=== PATIENT | female | born 1995 | race Asian ===

== ENCOUNTER → 2018-07-22 16:00 | Outpatient (CLI) | payer OTHER, MEDICAID, SELFPAY ==
--- NOTE | 2018-07-22 | DI.US.S_ITS ---
PROCEDURE: US OB <= 14 WEEKS FETUS INDICATIONS: SIZE AND DATES OUTSIDE/PRIOR DATING DATA: Last menstrual period (LMP): 05/01/18. LMP-based estimated date of delivery (MIKE): 02/05/19. First dating scan (date and location): 07/22/18. Estimated date of delivery (MIKE) from first dating scan: 02/19/19. TECHNIQUE: Real-time scanning was performed of the fetus and maternal pelvic organs, with image documentation. Endovaginal scanning was also performed to better visualize the fetus and maternal ovaries. COMPARISON: None. FINDINGS: Embryo: [place]-rump length measures 2.8 cm corresponding to 9 weeks 5 days. Embryonic heart rate measures 165 beats per minute. Measurement variability in dating: +/- 4 weeks by LMP, +/- 7 days by mean sac diameter (use before 6 weeks gestation if crown-rump length not able to be measured), +/- 5 days by crown-rump length (up to 8 weeks 6 days gestation), +/- 7 days by crown-rump length (up to 13 weeks 6 days gestation). Maternal organs: Ovaries within normal limits. Limited images through the kidneys demonstrate no hydronephrosis. IMPRESSION: 9 week 5 day single living IUP. Dictated by: Jack Collins RRA Interpreted: Rani Hurtado MD on 07/22/2018 at 17:18 Approved by: Rani Hurtado MD, PhD on 07/22/2018 at 18:11
== END ==
PROVIDERS: Visit Provider Family Medicine
DX: Z36.89 Encounter for other specified antenatal screening (principal); Z3A.09 9 weeks gestation of pregnancy
CPT/HCPCS: 76801

== ENCOUNTER → 2018-10-01 15:05 | Outpatient (CLI) | payer OTHER, MEDICAID, SELFPAY ==
--- NOTE | 2018-10-01 | DI.US.S_ITS ---
PROCEDURE: US OB >= 14 WEEKS FETUS INDICATIONS: ANATOMY OUTSIDE/PRIOR DATING DATA: Last menstrual period (LMP): 05/01/18. LMP-based estimated date of delivery (MIKE): 02/05/19. First dating scan (date and location): 07/22/18. Estimated date of delivery (MIKE) from first dating scan: 02/19/19. TECHNIQUE: Real-time scanning was performed of the fetus, with image documentation and biometric measurements. Endovaginal scanning: No COMPARISON: [facility], OB <= 14 WEEKS FETUS, 07/22/2018, 16:37. FINDINGS: General: A single living intrauterine gestation is present. Presentation: Breech. Placenta: Placental position is posterior, without previa. Amniotic fluid index: 16.1 cm, normal range is 5-24 cm. heart rate: 128 beats per minute. Maternal cervical canal: 5.7 cm long. Normal lower limit is 2.5 cm. biometrics: Biparietal diameter: 20 weeks Head circumference: 19 weeks 5 days Abdominal circumference: 20 weeks Femur length: 20 weeks 1 day Estimated gestational age from initial scan: 19 weeks 6 days Composite gestational age from present scan: 20 weeks Estimated weight and percentile: 327 g; 55th percentile Measurement variability for biometric dating: +/- 7 days from 14 weeks to 15 weeks 6 days gestation, +/- 10 days from 16 weeks to 21 weeks 6 days gestation, +/- 2 weeks from 22 weeks to 27 weeks 6 days gestation, +/- 3 weeks for 28 weeks gestation or later. weight reference: 4500 g or EFW >90/95% is considered macrosomia or large for gestational age. EFW <10% is small for gestational age. EFW 5% or less is considered intra-uterine growth restriction. Anatomic survey: Neuro: Ventricles are non-dilated at less than 10 mm. Cisterna magna is normal at 3-11 mm. Cerebellum is normal in size and morphology. Nuchal skin fold: Normal at less than 6 mm between 14-21 weeks gestational age. Face: Nose and lips, facial profile are normal. Spine: No evidence for spina bifida. Heart: 4-chambered heart is present, with normal ventricular outflow tracts. Diaphragm: Diaphragm is intact. Stomach: Left-sided stomach is present. Kidneys: No hydronephrosis. Normal is less than 5 mm in 2nd trimester, less than 7 mm in 3rd trimester. Cord: 3-vessel cord has orthotopic insertion. Bladder: Normal in size. Extremities: All 4 extremities identified. IMPRESSION: Single living IUP redemonstrated and interval growth is normal. Normal anatomic survey. Dictated by: Jack Collins [facility] Interpreted: Vaibhav Caballero MD on 10/01/2018 at 16:31 Approved by: Vaibhav Caballero M.D. on 10/01/2018 at 17:20
== END ==
PROVIDERS: Visit Provider Family Medicine
DX: Z36.89 Encounter for other specified antenatal screening (principal); Z3A.20 20 weeks gestation of pregnancy
CPT/HCPCS: 76811

== ENCOUNTER → 2019-01-26 13:27 | Outpatient (ROUT) | payer OTHER, MEDICAID, SELFPAY | PROVIDERS: Visit Provider Family Medicine | DX: Z34.90 Encounter for supervision of normal pregnancy, unspecified, unspecified trimester (principal) | CPT/HCPCS: 87081 ==

== ENCOUNTER 2019-02-17 21:22 | Observation (INO) | payer OTHER, MEDICAID, SELFPAY | END 2019-02-17 22:25 | disposition home or self-care (01) | LOC: LABOR 21:24 | PROVIDERS: Admitting Provider Family Medicine; Visit Provider Family Medicine | CPT/HCPCS: 59025; 84112; G0378; G0379 ==

== ENCOUNTER 2019-02-18 01:39 | Inpatient (IN) | payer OTHER, MEDICAID, SELFPAY ==
[2019-02-18 03:31] VITALS: BP 130/69
[2019-02-18] MEDS: LACTATED RINGERS 1,000 ML 100 ML IV ×2 (03:33→04:59)
[2019-02-18 03:49] LABS: Add Manual Diff / Slide Review NO; Basophils Absolute Auto 100 /uL (0-100); Basophils Percent Auto 0.5 % (0-2); Eosinophils Absolute Auto 100 /uL (0-450); Eosinophils Percent Auto 0.8 % (2-4); Hematocrit 35.1 % (36-46); Hemoglobin 11.5 g/dL (12.0-16.0); Lymphocytes Absolute Auto 1900 /uL (1100-4500); Lymphocytes Percent Auto 16.5 % (25-40); Mean Corpuscular HGB Conc 32.8 % (30-36); Mean Corpuscular Hemoglobin 28.8 PG (26-34); Mean Corpuscular Volume 87.6 fL (80-100); Monocytes Absolute Auto 900 /uL (0-900); Monocytes Percent Auto 7.8 % (3-14); Neutrophils Absolute Auto 8300 /uL (1500-7000); Neutrophils Percent Auto 74.4 % (50-75); Platelet Count 219 X10^3/uL (150-400); Red Cell Distribution Width 13.6 % (11.6-14.8); White Blood Cell Count 11.2 X10^3/uL (4.5-11.0)
[2019-02-18 05:04] LABS: Strep Grp B PCR NEG for Grp B Strep
--- NOTE | 2019-02-18 07:10 | P.HPOB_ITS ---
OB HPI Date/Time Date of admission: 02/18/19 Date Patient Seen: 02/18/19 Time Patient Seen: 07:08 History of Present Condition Chief complaint: EVALUATION OF LABOR : 1 Para: 0 Estimated Date of Delivery: 02/19/19 Estimated Gestational Age (weeks): 40 Narrative: Jennifer De La Fuente is a 23 year old female one para [address] Naik and Dr. Nugent at [facility]. Patient was seen initially at 11 weeks of . By last menstrual period dating ultrasound her due date is February 19, 2019. Patient presents in active labor with regular contractions an approximately 5 cm dilated. Indications Other reason(s) for admission: Active labor History of Present care: good care, initiated at week # (11), number of visits (12) and pounds weight gain (26) Dating criteria: LMP confirmed by 1st trimester US Ultrasounds: normal 1st trimester US and normal mid trimester US Abnormal ultrasound findings: None Obstetrical complications: none Medical complications: none Narrative: Patient had uneventful antepartum course. There is indication this patient had glucose in her urine and her blood sugars were followed for one week and were normal. Preadmission Labs Blood type: O (+) positive -: Antibody screen: negative, Cystic fibrosis screen: unknown, GBS status: negative, HBsAG: negative, HIV: negative, HSV 1: negative, HSV 2: negative and RPR/VDLR: negative -: Chlamydia screen: detected (Negative) and Gonorrhea screen: detected (Negative) -: Rubella: immune and Varicella: immune HCT: 35.1 HCAB: negative Integrated screen: Unknown Sequential screen: Unknown Cell-free DNA: Unknown Narrative: Patient evidently had a positive urine glucose and was followed for one week with fingerstick blood sugars. The sugars were normal. On questioning the patient never had a 1 hour or 3 hour glucose tolerance test Prior (ies) History: [place] Evaluation Evaluation Laboratory results: Laboratory Tests 02/18/19 02/18/19 02/18/19 02:30 02:30 04:00 WBC 11.2 H RBC 4.00 Hgb 11.5 L Hct 35.1 L MCV 87.6 MCH 28.8 MCHC 32.8 RDW 13.6 Plt Count 219 Neut % (Auto) 74.4 Lymph % (Auto) 16.5 L [place] % (Auto) 7.8 Eos % (Auto) 0.8 L Baso % (Auto) 0.5 Neut # (Auto) 8300 H Lymph # (Auto) 1900 [place] # (Auto) 900 Eos # (Auto) 100 Baso # (Auto) 100 Group B Strep (PCR) Neg for grp b strep Blood Type O Positive Antibody Screen Negative PFSH Family History (Updated 12/28/16 @ 00:00 by Conversion Provider) Grandfather Age: 67 Lung cancer Liver cancer Parkinson's disease Social History Smoking Status: Never smoker Family History Grandfather Age: 67 Lung cancer Liver cancer Parkinson's disease Social History Smoking Status: Never smoker Meds Home Medications Medication Instructions Recorded Confirmed Type No Known Home Medications 02/18/19 02/18/19 History Allergies Allergy/AdvReac Type Severity Reaction Status Date / Time No Known Drug Allergies Allergy Verified 01/11/18 16:33 Review of Systems Review of Systems All systems reviewed & are unremarkable except as noted in HPI and below Exam Vital Signs (past 8 hours): - 02/18/19 03:31 Blood Pressure 130/69 Const General: cooperative and healthy appearing [facility] Head: normal to inspection Ears: hearing grossly normal bilaterally Nose: external nose normal Face and sinus: normal facial exam Mouth: oral mucosae normal, lip normal, tongue normal and moist mucous membranes Teeth and gingiva: dentition normal Throat: posterior oropharynx normal Eyes General: appearance normal, both eyes and all related structures Neck Neck: normal visual inspection and full ROM Chest Chest: normal inspection of the chest and normal palpation of entire chest wall Breast inspection: normal inspection of the breasts and normal inspection of the axillae Breast Palpation: normal palpation of the breasts and normal palpation of the axillae Resp Effort & Inspection: normal respiratory effort Auscultation: clear to auscultation bilaterally Cardio Palpation: normal PMI Rate: regular rate Rhythm: regular rhythm Heart Sounds: S1 normal and S2 normal GI Inspection: normal to inspection Palpation: soft and no hepatosplenomegaly Percussion: normal to percussion Auscultation: normal bowel sounds External Female Exam: external appearance normal and normal appearance of the urethra Speculum Exam - Vagina: normal appearance of the vagina and normal vaginal discharge OB/External & Speculum: external exam normal Manual OB Exam: dilated 5, effaced fully and station 0 Uterus Location (Fundal Height): 39 Presentation: vertex Back/Spine/Pelvis Thoracic/Lumbar Spine: thoracic and lumbar spine normal to inspection Skin General: no rashes or lesions noted Neuro General: alert, oriented x3, tone normal and moves all extremities Cognition: normal cognition Speech: speech normal Gait: normal gait Motor: muscle tone normal throughout Sensory Exam: no sensory deficits noted Extrem General: normal to inspection and normal exam except as noted Psych Appearance: grossly normal and well kempt Mental Status: mental status grossly normal Speech and Movement: speech and movement normal Objective Labs Result Diagrams: 02/18/19 02:30 Labs: Laboratory Results - last 24 hr 02/18/19 02/18/19 02/18/19 02:30 02:30 04:00 WBC 11.2 H RBC 4.00 Hgb 11.5 L Hct 35.1 L MCV 87.6 MCH 28.8 MCHC 32.8 RDW 13.6 Plt Count 219 Neut % (Auto) 74.4 Lymph % (Auto) 16.5 L [place] % (Auto) 7.8 Eos % (Auto) 0.8 L Baso % (Auto) 0.5 Neut # (Auto) 8300 H Lymph # (Auto) 1900 [place] # (Auto) 900 Eos # (Auto) 100 Baso # (Auto) 100 Group B Strep (PCR) Neg for grp b strep Blood Type O Positive Antibody Screen Negative Assessment and Plan Assessment and Plan Assessment and Plan narrative: Term intrauterine Active labor Plan is for epidural Plan is for rupture membranes Time Spent with Patient Total time spent with greater than 50% in coordination of care (as documented) at patient's floor/unit and/or counseling patient:: 15-24 minutes
--- NOTE | 2019-02-18 07:36 | PM.OBPNLAB ---
Date/Time Date Patient Seen: 02/18/19 Pain Control Pain control: tolerating well and epidural Pelvic Exam Dilation (cm): 7 Effacement (%): 100 station: 0 Amniotic membrane status: Ruptured Contractions Contractions on admission: irregular Contraction pattern: Irregular Contraction intensity: Moderate Status status: Category l Monitor Accelerations: Present Monitor Decelerations: Absent Monitor Variability: Moderate Assessment and Plan Assessment: active labor Plan: begin patient augmentation
[2019-02-18] MEDS: OXYTOCIN PREMIX 30 UNIT/500 ML PLAST..BAG IV (09:01)
--- NOTE | 2019-02-18 11:38 | PM.OBPRVD ---
Delivery date: 02/18/19 Intrapartal events: None Cervical ripening method: none Delivery augmentation: rupture of membranes and pitocin Delivery monitor: external FHT and external uterine Route of delivery: L&D Laceration Description: Perineal - 1st Degree Delivery repair: chromic Estimated blood loss (mL): 300 Anesthesia type: Epidural Complications: None none Narrative: Patient is a 23-year-old one para 0 who presented in active labor. Patient received epidural. Date good progress to complete. She had a desultory labor after the epidural and needed a small amount of Pitocin. The patient pushed and delivered spontaneously a live born male with scores of nine at one minute nine at 5 minutes. There is a small 1st degree perineal tear requiring one stitch. There are no cervical vaginal lacerations. This placenta delivered spontaneously. The cord had three vessels. The estimated blood loss was 300 cc. Plan for aftercare: Routine aftercare
[2019-02-18] MEDS: LANOLIN OINT 7 GM 1 APPLIC TOP (16:28)
[2019-02-18] MEDS: KETOROLAC 30 MG/ML VIAL IV (16:29)
[2019-02-18] MEDS: DERMOPLAST SPRAY 20% 60 ML 1 SPRAY TOP (16:29)
[2019-02-18] MEDS: MEASLES,MUMPS,RUBELLA VACC/PF 0.5 ML VIAL SUBCUT (21:54)
[2019-02-18] MEDS: IBUPROFEN 600 MG TABLET PO (22:29)
[2019-02-19] MEDS: IBUPROFEN 600 MG TABLET PO ×2 (04:27→10:13)
[2019-02-19] MEDS: FERROUS GLUCONATE 324 MG TABLET PO (10:12)
[2019-02-19] MEDS: PRENATAL VIT,CALC/IRON/FOLIC 1 TABLET 1 TAB PO (10:12)
[2019-02-19 10:13] VITALS: TEMP 36.6
[2019-02-19] MEDS: DOCUSATE 250 MG CAPSULE PO (10:13)
[2019-02-19 10:34] LABS: Hematocrit 31.4 % (36-46); Hemoglobin 10.6 g/dL (12.0-16.0)
--- NOTE | 2019-02-19 13:03 | P.DS_ITS ---
Discharge Providers Date of admission: 02/18/19 01:39 Discharge Date: 02/19/19 Primary care physician: Chance Wilkes MD Consults: 02/18/19 12:24 Consult to Outside Deliverer Routine Comment: Discharge provider: Joseline Naik MD Summary Time Spent with Patient Total time spent providing and/or coordinating discharge services: 30 minutes Patient presented to Labor and delivery in active labor at term with uncomplicated . She received epidural and labor progressed. Pitocin augmentation was performed. She had clear fluid. She had a normal spontaneous vaginal delivery of a viable male weighing 8 lb 0.09 oz and Apgars were 9 at 1 minute and 9 at 5 minutes and she had uncomplicated course. She is well without difficulty and was sent home on day 1. Follow up with Dr. Nugent in 2 weeks Objective Labs Result Diagrams: 02/19/19 10:25 Labs: Laboratory Results - last 24 hr 02/19/19 10:25 Hgb 10.6 L Hct 31.4 L Exam Vital Signs (past 8 hours): - 02/19/19 10:13 Temperature 97.8 F Narrative Exam Narrative: Alert and oriented x3, vital signs stable Neck is supple Chest: Clear to auscultation without wheezes rhonchi or crackles Cor: Regular rate and rhythm without murmur Abdomen: Positive bowel sounds, uterus firm and below the umbilicus Extremities: No edema DTRs are intact Discharge Plan Discharge Plan Patient Disposition: Home Discharge Med Rec/Prescriptions Prescriptions: No Action No Known Home Medications RF: 0 Follow up/Referrals: Chance Wilkes MD [Primary Care Provider] - Chance Nugent MD [Physician] - (Followup with Dr. Nugent on March 31 at 2:45PM) Provider Discharge Instructions Diet: Diet as Tolerated Discharge Data Primary Care Provider: Chance Wilkes Attending Provider: Chance Wilkes Admit Date/Time: 02/18/19 01:39
[2019-02-19 14:03] VITALS: BP 131/75; PULSE 73; RESP 16; TEMP 36.6
== END 2019-02-19 16:30 | disposition home or self-care (01) | DRG 560 ==
DX: O70.0 First degree perineal laceration during delivery (principal); Z3A.40 40 weeks gestation of pregnancy; Z37.0 Single live birth
CPT/HCPCS: 01967; 36415; 59025; 59050; 59409; 84112; 85014; 85018; 85025; 86850; 86900; 86901; 87081; 87653; G0378; G0379; J1885; J2590